=== PATIENT | female | born 1960 | race African-American/Black ===

== ENCOUNTER 2018-06-02 12:44 | Emergency (ER) | payer SELFPAY ==
[~2018-06-02] VITALS: Ht 157.5 cm; Wt 103.0 kg
[~2018-06-02 12:44] MED LIST: METF-414 PO
[2018-06-02] MEDS ORDERED: OXYCODONE HCL/ACETAMINOPHEN 5/325MG TABLET PO ONE (13:30)
[2018-06-02 13:33] VITALS: BP 160/77
== END 2018-06-02 15:28 | disposition home or self-care (01) ==
LOC: ER 12:44
DX: M79.18 Myalgia, other site (principal); E11.9 Type 2 diabetes mellitus without complications; J45.909 Unspecified asthma, uncomplicated; W01.0XXA Fall on same level from slipping, tripping and stumbling without subsequent striking against object, initial encounter; Y93.89 Activity, other specified; Y92.89 Other specified places as the place of occurrence of the external cause
CPT/HCPCS: 73552; 99283

== ENCOUNTER 2023-04-30 09:22 | Emergency (ER) | payer OTHER ==
[~2023-04-30] VITALS: Ht 157.5 cm; Wt 92.0 kg
[2023-04-30 09:43] VITALS: BP 155/77; PULSE 91; RESP 20; TEMP 98.6; O2SAT 99
[2023-04-30 10:49] LABS: BASOPHILS % 1.1 % (0.0-2.0); EOSINOPHILS % 3.3 % (0.0-5.0); HEMATOCRIT. 41.4 % (36.0-48.0); LYMPHOCYTES % 31.1 % (20.0-50.0); MEAN CORPUSCULAR HEMOGLOBIN 28.5 pg (28.0-32.0); MEAN CORPUSCULAR HGB CONC 33.7 g/dL (31.0-37.0); MEAN CORPUSCULAR VOLUME 84.7 fL (81.0-99.0); MEAN PLATELET VOLUME 8.2 fl (7.4-10.4); MONOCYTES % 10.5 % (2.0-8.0); PLATELET 296 x1000/uL (130-400); RED BLOOD CELL COUNT 4.89 mill/uL (4.2-5.4); RED CELL DISTRIBUTION WIDTH 14.1 % (11.6-14.6); WHITE BLOOD COUNT 7.9 x1000/uL (4.5-11.0)
[2023-04-30 11:00] LABS: INR 1.1; PROTHROMBIN TIME 11.9 sec (9.6-11.0)
[2023-04-30 11:10] LABS: CLARITY URINE CLOUDY (CLEAR); COLOR URINE YELLOW (YELLOW); GLUCOSE URINE 3+ (NEGATIVE); KETONES URINE TRACE (NEGATIVE); LEUKOCYTE ESTERASE URINE NEGATIVE (NEGATIVE); NITRITE URINE NEGATIVE (NEGATIVE); OCCULT BLOOD URINE 2+ (NEGATIVE); PH URINE 5.5 (4.5-8.0); PROTEIN URINE NEGATIVE (NEGATIVE); SPECIFIC GRAVITY URINE 1.047 (1.005-1.030); UROBILINOGEN URINE 0.2 E.U./dL (0.2-1.0)
[2023-04-30 11:25] LABS: SQUAMOUS EPITHELIAL CELL URINE 2+ /lpf (RARE/1+)
[2023-04-30 11:27] LABS: BACTERIA URINE 3+; YEAST URINE 2+
[2023-04-30 11:31] LABS: ALANINE AMINOTRANSFERASE 20 IU/L (10-49); ALBUMIN 4.4 g/dL (3.2-4.8); ASPARTATE AMINOTRANSFERASE 17 IU/L (<34); BILIRUBIN TOTAL 0.6 mg/dL (0.1-1.0); CALCIUM 9.1 mg/dL (8.7-10.4); CARBON DIOXIDE 26 mEq/L (21-32); CHLORIDE 102 mEq/L (98-107); CREATININE 0.7 mg/dL (0.6-1.0); GLUCOSE 386 mg/dL (70-105); PROTEIN TOTAL 8.5 g/dL (6.0-8.3); SODIUM 132 mEq/L (136-145); TROPONIN I HIGH SENSITIVITY 4 ng/L (3.0-34); UREA NITROGEN BLOOD 13 mg/dL (9-23)
[2023-04-30] MEDS ORDERED: ALBU6.7H15 INH (11:48)
[2023-04-30] MEDS ORDERED: CEPH250C2 MT (11:48)
[2023-04-30] MEDS ORDERED: P50 MT (11:48)
== END 2023-04-30 12:05 | disposition home or self-care (01) ==
LOC: ER 09:22
DX: J45.901 Unspecified asthma with (acute) exacerbation (principal); N39.0 Urinary tract infection, site not specified; R51.9 Headache, unspecified; E11.9 Type 2 diabetes mellitus without complications; Z98.890 Other specified postprocedural states
CPT/HCPCS: 36415; 71045; 80053; 81003; 83880; 84484; 85025; 93005; 99285